=== PATIENT | male | born 1960 | race African-American/Black ===

== ENCOUNTER 2021-08-09 16:25 | Inpatient (IN) | payer OTHER ==
[2021-08-09 17:24] LABS: BASO % 1.1 % (0-2.0); EOS % 2.1 % (0-4.5); HEMATOCRIT 33.9 % (35.4-49); HEMOGLOBIN 10.9 GM/dL (11.7-16.9); LYMPH % 14.4 % (8-40); MCH 28.5 pg (25.7-33.7); MCHC 32.1 g/dl (32.0-35.9); MEAN CELL VOLUME 88.7 fl (80-96); MEAN PLT VOLUME 9.8 fl (7.5-11.1); MONO % 6.1 % (3.8-10.2); NEUT % 76.3 % (42.8-82.8); PLATELET COUNT 190 10^3/uL (134-434); RBC 3.82 M/mm3 (4.00-5.60); RDW 16.6 % (11.9-15.9); WHITE BLOOD COUNT 5.2 K/mm3 (4.0-10.0)
[2021-08-09 17:47] LABS: BLOOD UREA NITROGEN 38.6 mg/dL (7-18); CALCIUM 8.1 mg/dL (8.5-10.1)
[2021-08-09 17:48] LABS: ALBUMIN 3.2 g/dl (3.4-5.0)
[2021-08-09 17:51] LABS: CREATININE 2.6 mg/dL (0.55-1.3)
[2021-08-09 17:52] LABS: BILIRUBIN,TOTAL 0.6 mg/dL (0.2-1); TOT PROT 6.4 g/dl (6.4-8.2)
[2021-08-09 17:55] LABS: N-TERMINAL BNP 8116.6 pg/ml (5-125)
[2021-08-09] MEDS ORDERED: FUROSEMIDE 40 MG/4 ML INJECTABLE VIAL IVPUSH ONE (18:44)
[2021-08-09] MEDS ORDERED: FUROSEMIDE 40 MG/4 ML INJECTABLE VIAL ONE (19:38)
[2021-08-09 19:53] LABS: ACTIVATED PTT 33.1 SECONDS (25.2-36.5); INR 1.25 (0.83-1.09); PROTHROMBIN TIME (PATIENT) 14.4 SEC (9.7-13.0)
[2021-08-09 20:01] LABS: VENOUS BASE EXCESS -1.6 mmol/L (-2-2); VENOUS O2 SATURATION 90.3 % (70-80); VENOUS PCO2 39.9 mmHg (38-52); VENOUS PH 7.384 (7.310-7.410)
[2021-08-09] MEDS ORDERED: PNEUMOC 13-VAL CONJ-DIP CRM/PF 0.5 ML DISP.SYRIN IM ONE (23:56)
[2021-08-10 07:44] LABS: BASO % 0.8 % (0-2.0); HEMOGLOBIN 10.1 GM/dL (11.7-16.9); LYMPH % 18.7 % (8-40); MCHC 32.7 g/dl (32.0-35.9); MEAN CELL VOLUME 88.8 fl (80-96); MEAN PLT VOLUME 9.6 fl (7.5-11.1); MONO % 10.9 % (3.8-10.2); NEUT % 66.6 % (42.8-82.8); PLATELET COUNT 157 10^3/uL (134-434); RBC 3.49 M/mm3 (4.00-5.60); RDW 16.8 % (11.9-15.9); WHITE BLOOD COUNT 5.5 K/mm3 (4.0-10.0)
[2021-08-10 08:02] LABS: ALBUMIN 3.1 g/dl (3.4-5.0); BLOOD UREA NITROGEN 39.8 mg/dL (7-18); CALCIUM 8.3 mg/dL (8.5-10.1)
[2021-08-10 08:05] LABS: CREATININE 2.3 mg/dL (0.55-1.3)
[2021-08-10 08:07] LABS: BILIRUBIN,TOTAL 0.8 mg/dL (0.2-1); TOT PROT 5.8 g/dl (6.4-8.2)
[2021-08-10] MEDS ORDERED: PNEUMOCOCCAL 23 VACCINE 0.5 ML VIAL IM ONE (10:00)
[2021-08-10] MEDS: PANTOPRAZOLE 40 MG TABLET PO SCH (10:29)
[2021-08-10] MEDS: RIVAROXABAN 10 MG TABLET PO SCH (10:29)
[2021-08-10] MEDS: FUROSEMIDE 40 MG/4 ML INJECTABLE VIAL IVPUSH SCH (10:29)
[2021-08-10] MEDS: CLOPIDOGREL BISULFATE 75 MG TABLET (FP) PO SCH (10:29)
[2021-08-10 14:30] LABS: EPI CELLS 1 /uL (0-25.1); HYALINE CASTS 0 /uL (0-3.1); URINE APPEARANCE CLEAR; URINE BACTERIA 1 /uL (0-1359); URINE BILIRUBIN NEGATIVE (NEGATIVE); URINE COLOR YELLOW; URINE GLUCOSE (UA) NEGATIVE (NEGATIVE); URINE KETONE NEGATIVE (NEGATIVE); URINE LEUK ESTERASE NEGATIVE (NEGATIVE); URINE NITRITE NEGATIVE (NEGATIVE); URINE PROTEIN NEGATIVE (NEGATIVE); URINE RBC 1 /uL (0-23.9); URINE UROBILINOGEN 0.2 mg/dL (0.2-1.0); URINE WBC 1 /uL (0-25.8)
[2021-08-10] MEDS: ATORVASTATIN CA 80 MG TABLET (FP) PO SCH (21:33)
[2021-08-11 08:22] LABS: CALCIUM 8.4 mg/dL (8.5-10.1)
[2021-08-11 08:23] LABS: ALBUMIN 3.3 g/dl (3.4-5.0); BLOOD UREA NITROGEN 39.4 mg/dL (7-18)
[2021-08-11 08:26] LABS: CREATININE 2.2 mg/dL (0.55-1.3)
[2021-08-11 08:28] LABS: BILIRUBIN,TOTAL 0.8 mg/dL (0.2-1); TOT PROT 6.2 g/dl (6.4-8.2)
[2021-08-11] MEDS: FUROSEMIDE 40 MG/4 ML INJECTABLE VIAL IVPUSH SCH (09:44)
[2021-08-11] MEDS: RIVAROXABAN 10 MG TABLET PO SCH (09:44)
[2021-08-11] MEDS: CLOPIDOGREL BISULFATE 75 MG TABLET (FP) PO SCH (09:44)
[2021-08-11] MEDS: PANTOPRAZOLE 40 MG TABLET PO SCH (09:44)
[2021-08-11] MEDS: ATORVASTATIN CA 80 MG TABLET (FP) PO SCH (21:48)
[2021-08-12] MEDS: PANTOPRAZOLE 40 MG TABLET PO SCH (09:34)
[2021-08-12] MEDS: CLOPIDOGREL BISULFATE 75 MG TABLET (FP) PO SCH (09:34)
[2021-08-12] MEDS: RIVAROXABAN 10 MG TABLET PO SCH (09:34)
[2021-08-12] MEDS: FUROSEMIDE 40 MG/4 ML INJECTABLE VIAL IVPUSH SCH (09:34)
[2021-08-12 16:14] LABS: BASO % 0.8 % (0-2.0); HEMATOCRIT 34.4 % (35.4-49); HEMOGLOBIN 11.3 GM/dL (11.7-16.9); LYMPH % 17.3 % (8-40); MCH 29.1 pg (25.7-33.7); MCHC 32.7 g/dl (32.0-35.9); MEAN CELL VOLUME 88.9 fl (80-96); MEAN PLT VOLUME 9.6 fl (7.5-11.1); MONO % 7.7 % (3.8-10.2); NEUT % 70.2 % (42.8-82.8); PLATELET COUNT 179 10^3/uL (134-434); RBC 3.87 M/mm3 (4.00-5.60); RDW 16.3 % (11.9-15.9); WHITE BLOOD COUNT 5.2 K/mm3 (4.0-10.0)
[2021-08-12 16:37] LABS: CALCIUM 8.2 mg/dL (8.5-10.1)
[2021-08-12 16:38] LABS: ALBUMIN 3.1 g/dl (3.4-5.0); BLOOD UREA NITROGEN 36.8 mg/dL (7-18)
[2021-08-12 16:42] LABS: BILIRUBIN,TOTAL 0.6 mg/dL (0.2-1); TOT PROT 6.1 g/dl (6.4-8.2)
[2021-08-12] MEDS: ASPIRIN 81 MG CHEWABLE TABLETS PO SCH (16:49)
[2021-08-12] MEDS: EMPAGLIFLOZIN 10 MG PO SCH (17:50)
[2021-08-12] MEDS: ATORVASTATIN CA 80 MG TABLET (FP) PO SCH (21:02)
[2021-08-13 07:32] LABS: BASO % 0.8 % (0-2.0); EOS % 4.4 % (0-4.5); HEMATOCRIT 32.7 % (35.4-49); HEMOGLOBIN 10.8 GM/dL (11.7-16.9); LYMPH % 17.1 % (8-40); MCH 29.3 pg (25.7-33.7); MCHC 33.1 g/dl (32.0-35.9); MEAN CELL VOLUME 88.7 fl (80-96); MEAN PLT VOLUME 9.8 fl (7.5-11.1); MONO % 7.8 % (3.8-10.2); NEUT % 69.9 % (42.8-82.8); PLATELET COUNT 162 10^3/uL (134-434); RBC 3.69 M/mm3 (4.00-5.60); RDW 16.9 % (11.9-15.9); WHITE BLOOD COUNT 4.4 K/mm3 (4.0-10.0)
[2021-08-13 07:42] LABS: CALCIUM 8.2 mg/dL (8.5-10.1)
[2021-08-13 07:43] LABS: ALBUMIN 2.9 g/dl (3.4-5.0)
[2021-08-13 07:46] LABS: CREATININE 1.9 mg/dL (0.55-1.3)
[2021-08-13 07:47] LABS: BILIRUBIN,TOTAL 0.8 mg/dL (0.2-1)
[2021-08-13] MEDS: EMPAGLIFLOZIN 10 MG PO SCH (09:12)
[2021-08-13] MEDS: RIVAROXABAN 10 MG TABLET PO SCH (09:13)
[2021-08-13] MEDS: PANTOPRAZOLE 40 MG TABLET PO SCH (09:13)
[2021-08-13] MEDS: CLOPIDOGREL BISULFATE 75 MG TABLET (FP) PO SCH (09:13)
[2021-08-13] MEDS: FUROSEMIDE 40 MG/4 ML INJECTABLE VIAL IVPUSH SCH (09:13)
[2021-08-13] MEDS: ASPIRIN 81 MG CHEWABLE TABLETS PO SCH (09:13)
[2021-08-13] MEDS: ATORVASTATIN CA 80 MG TABLET (FP) PO SCH (21:12)
[2021-08-14] MEDS: EMPAGLIFLOZIN 10 MG PO SCH (10:08)
[2021-08-14] MEDS: ASPIRIN 81 MG CHEWABLE TABLETS PO SCH (10:08)
[2021-08-14] MEDS: CLOPIDOGREL BISULFATE 75 MG TABLET (FP) PO SCH (10:08)
[2021-08-14] MEDS: PANTOPRAZOLE 40 MG TABLET PO SCH (10:08)
[2021-08-14] MEDS: FUROSEMIDE 40 MG/4 ML INJECTABLE VIAL IVPUSH SCH (10:08)
[2021-08-14] MEDS: RIVAROXABAN 10 MG TABLET PO SCH (10:08)
[2021-08-14] MEDS ORDERED: SACUBITRIL/VALSARTAN 24 MG-26 MG TABLET PO SCH (12:00)
[2021-08-14] MEDS: SACUBITRIL/VALSARTAN 24 MG-26 MG TABLET PO SCH ×2 (13:07→21:58)
[2021-08-14] MEDS: ATORVASTATIN CA 80 MG TABLET (FP) PO SCH (21:58)
[2021-08-15 08:09] LABS: ALBUMIN 2.8 g/dl (3.4-5.0)
[2021-08-15 08:12] LABS: CREATININE 1.9 mg/dL (0.55-1.3)
[2021-08-15 08:14] LABS: BILIRUBIN,TOTAL 1.2 mg/dL (0.2-1); TOT PROT 5.8 g/dl (6.4-8.2)
[2021-08-15] MEDS: CLOPIDOGREL BISULFATE 75 MG TABLET (FP) PO SCH (09:36)
[2021-08-15] MEDS: FUROSEMIDE 40 MG/4 ML INJECTABLE VIAL IVPUSH SCH (09:36)
[2021-08-15] MEDS: SACUBITRIL/VALSARTAN 24 MG-26 MG TABLET PO SCH ×2 (09:39→21:19)
[2021-08-15] MEDS: ASPIRIN 81 MG CHEWABLE TABLETS PO SCH (09:39)
[2021-08-15] MEDS: PANTOPRAZOLE 40 MG TABLET PO SCH (09:39)
[2021-08-15] MEDS: EMPAGLIFLOZIN 10 MG PO SCH (09:40)
[2021-08-15] MEDS: RIVAROXABAN 10 MG TABLET PO SCH (12:02)
[2021-08-15] MEDS ORDERED: POTASSIUM CHLORIDE TABS 20 MEQ TABLET.ER (FP) PO ONE (15:42)
[2021-08-15] MEDS: ATORVASTATIN CA 80 MG TABLET (FP) PO SCH (21:19)
[2021-08-16 07:13] LABS: CALCIUM 8.1 mg/dL (8.5-10.1)
[2021-08-16 07:14] LABS: ALBUMIN 2.7 g/dl (3.4-5.0); BLOOD UREA NITROGEN 32.5 mg/dL (7-18)
[2021-08-16 07:18] LABS: BILIRUBIN,TOTAL 0.9 mg/dL (0.2-1); CREATININE 2.3 mg/dL (0.55-1.3); TOT PROT 5.8 g/dl (6.4-8.2)
[2021-08-16] MEDS: PANTOPRAZOLE 40 MG TABLET PO SCH (09:28)
[2021-08-16] MEDS: RIVAROXABAN 10 MG TABLET PO SCH (09:28)
[2021-08-16] MEDS: SACUBITRIL/VALSARTAN 24 MG-26 MG TABLET PO SCH ×2 (09:28→21:40)
[2021-08-16] MEDS: ASPIRIN 81 MG CHEWABLE TABLETS PO SCH (09:28)
[2021-08-16] MEDS: CLOPIDOGREL BISULFATE 75 MG TABLET (FP) PO SCH (09:28)
[2021-08-16] MEDS: FUROSEMIDE 40 MG TABLET (FP) PO SCH (09:28)
[2021-08-16] MEDS: EMPAGLIFLOZIN 10 MG PO SCH (09:40)
[2021-08-16] MEDS: RIVAROXABAN 20 MG TABLET PO SCH (18:00)
[2021-08-16] MEDS: ATORVASTATIN CA 80 MG TABLET (FP) PO SCH (21:40)
[2021-08-17] MEDS: FUROSEMIDE 40 MG TABLET (FP) PO SCH (09:09)
[2021-08-17] MEDS: EMPAGLIFLOZIN 10 MG PO SCH (09:09)
[2021-08-17] MEDS: SACUBITRIL/VALSARTAN 24 MG-26 MG TABLET PO SCH ×2 (09:09→21:13)
[2021-08-17] MEDS: CLOPIDOGREL BISULFATE 75 MG TABLET (FP) PO SCH (09:09)
[2021-08-17] MEDS: PANTOPRAZOLE 40 MG TABLET PO SCH (09:09)
[2021-08-17 14:21] VITALS: BMI 27.3
[2021-08-17] MEDS: RIVAROXABAN 20 MG TABLET PO SCH (17:17)
[2021-08-17] MEDS: ATORVASTATIN CA 80 MG TABLET (FP) PO SCH (21:13)
[2021-08-18 08:51] LABS: BASO % 1.1 % (0-2.0); EOS % 3.6 % (0-4.5); HEMOGLOBIN 11.5 GM/dL (11.7-16.9); LYMPH % 21.8 % (8-40); MCH 28.4 pg (25.7-33.7); MEAN CELL VOLUME 88.7 fl (80-96); MEAN PLT VOLUME 10.5 fl (7.5-11.1); MONO % 9.3 % (3.8-10.2); NEUT % 64.2 % (42.8-82.8); PLATELET COUNT 190 10^3/uL (134-434); RBC 4.06 M/mm3 (4.00-5.60); RDW 16.4 % (11.9-15.9); WHITE BLOOD COUNT 5.4 K/mm3 (4.0-10.0)
[2021-08-18] MEDS: SACUBITRIL/VALSARTAN 24 MG-26 MG TABLET PO SCH ×2 (09:16→21:50)
[2021-08-18] MEDS: FUROSEMIDE 40 MG TABLET (FP) PO SCH (09:17)
[2021-08-18] MEDS: PANTOPRAZOLE 40 MG TABLET PO SCH (09:17)
[2021-08-18] MEDS: CLOPIDOGREL BISULFATE 75 MG TABLET (FP) PO SCH (09:17)
[2021-08-18 09:33] LABS: ALBUMIN 2.8 g/dl (3.4-5.0); CALCIUM 7.9 mg/dL (8.5-10.1)
[2021-08-18 09:34] LABS: BLOOD UREA NITROGEN 31.5 mg/dL (7-18)
[2021-08-18 09:36] LABS: CREATININE 2.1 mg/dL (0.55-1.3)
[2021-08-18 09:37] LABS: BILIRUBIN,TOTAL 0.6 mg/dL (0.2-1); TOT PROT 5.8 g/dl (6.4-8.2)
[2021-08-18] MEDS: EMPAGLIFLOZIN 10 MG PO SCH (10:15)
[2021-08-18] MEDS ORDERED: PNEUMOCOCCAL 23 VACCINE 0.5 ML VIAL IM ONE (14:00)
[2021-08-18] MEDS: RIVAROXABAN 20 MG TABLET PO SCH (17:19)
[2021-08-18] MEDS: ATORVASTATIN CA 80 MG TABLET (FP) PO SCH (21:50)
[2021-08-19] MEDS: CLOPIDOGREL BISULFATE 75 MG TABLET (FP) PO SCH (09:44)
[2021-08-19] MEDS: PANTOPRAZOLE 40 MG TABLET PO SCH (09:44)
[2021-08-19] MEDS: FUROSEMIDE 40 MG TABLET (FP) PO SCH (09:44)
[2021-08-19] MEDS: SACUBITRIL/VALSARTAN 24 MG-26 MG TABLET PO SCH ×2 (09:45→21:01)
[2021-08-19] MEDS: EMPAGLIFLOZIN 10 MG PO SCH (09:46)
[2021-08-19] MEDS: RIVAROXABAN 20 MG TABLET PO SCH (17:00)
[2021-08-19] MEDS: ATORVASTATIN CA 80 MG TABLET (FP) PO SCH (21:01)
[2021-08-20] MEDS: FUROSEMIDE 40 MG TABLET (FP) PO SCH (09:11)
[2021-08-20] MEDS: CLOPIDOGREL BISULFATE 75 MG TABLET (FP) PO SCH (09:11)
[2021-08-20] MEDS: EMPAGLIFLOZIN 10 MG PO SCH (09:11)
[2021-08-20] MEDS: PANTOPRAZOLE 40 MG TABLET PO SCH (09:11)
[2021-08-20] MEDS: SACUBITRIL/VALSARTAN 24 MG-26 MG TABLET PO SCH ×2 (09:11→21:42)
[2021-08-20] MEDS: RIVAROXABAN 20 MG TABLET PO SCH (18:00)
[2021-08-20] MEDS: ATORVASTATIN CA 80 MG TABLET (FP) PO SCH (21:42)
[2021-08-21 09:02] LABS: BLOOD UREA NITROGEN 34.4 mg/dL (7-18); CALCIUM 8.1 mg/dL (8.5-10.1)
[2021-08-21 09:03] LABS: ALBUMIN 2.9 g/dl (3.4-5.0)
[2021-08-21 09:05] LABS: CREATININE 2.3 mg/dL (0.55-1.3)
[2021-08-21 09:07] LABS: BILIRUBIN,TOTAL 0.9 mg/dL (0.2-1); TOT PROT 6.3 g/dl (6.4-8.2)
[2021-08-21] MEDS: SACUBITRIL/VALSARTAN 24 MG-26 MG TABLET PO SCH ×2 (10:59→22:40)
[2021-08-21] MEDS: PANTOPRAZOLE 40 MG TABLET PO SCH (10:59)
[2021-08-21] MEDS: CLOPIDOGREL BISULFATE 75 MG TABLET (FP) PO SCH (10:59)
[2021-08-21] MEDS: EMPAGLIFLOZIN 10 MG PO SCH (10:59)
[2021-08-21] MEDS: FUROSEMIDE 40 MG TABLET (FP) PO SCH (10:59)
[2021-08-21] MEDS: RIVAROXABAN 20 MG TABLET PO SCH (19:20)
[2021-08-21] MEDS: ATORVASTATIN CA 80 MG TABLET (FP) PO SCH (22:40)
[2021-08-22 09:32] VITALS: BP 96/73; PULSE 86; TEMP 97.5
[2021-08-22] MEDS: SACUBITRIL/VALSARTAN 24 MG-26 MG TABLET PO SCH (09:33)
[2021-08-22] MEDS: FUROSEMIDE 40 MG TABLET (FP) PO SCH (09:34)
[2021-08-22] MEDS: EMPAGLIFLOZIN 10 MG PO SCH (09:34)
[2021-08-22] MEDS: PANTOPRAZOLE 40 MG TABLET PO SCH (09:34)
[2021-08-22] MEDS: CLOPIDOGREL BISULFATE 75 MG TABLET (FP) PO SCH (09:34)
== END 2021-08-22 12:30 | disposition home or self-care (01) | DRG 194 ==
LOC: JER 16:25 → JERBED 18:39 → J4W 22:45
PROVIDERS: ADMIT Internal Medicine; ATTEND Internal Medicine
DX: I13.0 Hypertensive heart and chronic kidney disease with heart failure and stage 1 through stage 4 chronic kidney disease, or unspecified chronic kidney disease (principal); K21.9 Gastro-esophageal reflux disease without esophagitis; I48.0 Paroxysmal atrial fibrillation; I25.2 Old myocardial infarction; N17.9 Acute kidney failure, unspecified; I25.10 Atherosclerotic heart disease of native coronary artery without angina pectoris; E78.5 Hyperlipidemia, unspecified; K76.0 Fatty (change of) liver, not elsewhere classified; R31.29 Other microscopic hematuria; I50.23 Acute on chronic systolic (congestive) heart failure; N18.9 Chronic kidney disease, unspecified; E87.6 Hypokalemia; Z98.61 Coronary angioplasty status; D64.9 Anemia, unspecified; I47.2 Ventricular tachycardia
CPT/HCPCS: 36415; 71045-TC-FY; 76775-TC; 80053; 80061; 81003; 82272; 82570; 82803; 83036; 83880; 84156; 84443; 84484; 85025; 85610; 85730; 90732; 93005; 93010; 93306-TC; 94660; 99291; C9803-CS; G0009; U0003; U0005

== ENCOUNTER 2021-10-09 14:30 | Inpatient (IN) | payer OTHER ==
[2021-10-09] MEDS ORDERED: FUROSEMIDE 40 MG/4 ML INJECTABLE VIAL IVPUSH ONE (16:55)
[2021-10-09] MEDS ORDERED: FUROSEMIDE 40 MG/4 ML INJECTABLE VIAL ONE (17:14)
[2021-10-09 17:51] LABS: EOS % 0.9 % (0-4.5); HEMATOCRIT 38.3 % (35.4-49); HEMOGLOBIN 11.9 GM/dL (11.7-16.9); LYMPH % 18.3 % (8-40); MCH 26.1 pg (25.7-33.7); MCHC 30.9 g/dl (32.0-35.9); MEAN CELL VOLUME 84.5 fl (80-96); MEAN PLT VOLUME 10.5 fl (7.5-11.1); MONO % 8.2 % (3.8-10.2); NEUT % 71.6 % (42.8-82.8); PLATELET COUNT 224 10^3/uL (134-434); RBC 4.54 M/mm3 (4.00-5.60); WHITE BLOOD COUNT 5.1 K/mm3 (4.0-10.0)
[2021-10-09 17:58] LABS: INR 1.4 (0.83-1.09); PROTHROMBIN TIME (PATIENT) 16.1 SEC (9.7-13.0)
[2021-10-09 18:00] LABS: ACTIVATED PTT 40.1 SECONDS (25.2-36.5)
[2021-10-09 18:13] LABS: CALCIUM 8.8 mg/dL (8.5-10.1)
[2021-10-09 18:14] LABS: ALBUMIN 3.5 g/dl (3.4-5.0); BLOOD UREA NITROGEN 55.8 mg/dL (7-18); MAGNESIUM 2.6 mg/dL (1.8-2.4)
[2021-10-09 18:17] LABS: CREATININE 2.6 mg/dL (0.55-1.3)
[2021-10-09 18:19] LABS: BILIRUBIN,TOTAL 1.4 mg/dL (0.2-1); TOT PROT 6.6 g/dl (6.4-8.2)
[2021-10-09 18:21] LABS: N-TERMINAL BNP 11402.8 pg/ml (5-125)
[2021-10-09 19:05] LABS: EPI CELLS 7 /uL (0-25.1); HYALINE CASTS 2 /uL (0-3.1); URINE APPEARANCE CLEAR; URINE BACTERIA 2 /uL (0-1359); URINE BILIRUBIN NEGATIVE (NEGATIVE); URINE COLOR YELLOW; URINE GLUCOSE (UA) NEGATIVE (NEGATIVE); URINE KETONE NEGATIVE (NEGATIVE); URINE LEUK ESTERASE NEGATIVE (NEGATIVE); URINE NITRITE NEGATIVE (NEGATIVE); URINE PROTEIN 1+ (NEGATIVE); URINE RBC 14 /uL (0-23.9); URINE UROBILINOGEN 0.2 mg/dL (0.2-1.0); URINE WBC 4 /uL (0-25.8)
[2021-10-10 08:09] VITALS: BMI 30.3
[2021-10-10 08:15] LABS: BASO % 1.1 % (0-2.0); EOS % 1.4 % (0-4.5); HEMATOCRIT 36.7 % (35.4-49); HEMOGLOBIN 11.6 GM/dL (11.7-16.9); LYMPH % 19.4 % (8-40); MCH 26.5 pg (25.7-33.7); MCHC 31.5 g/dl (32.0-35.9); MEAN CELL VOLUME 84.1 fl (80-96); MEAN PLT VOLUME 10.5 fl (7.5-11.1); MONO % 11.7 % (3.8-10.2); NEUT % 66.4 % (42.8-82.8); PLATELET COUNT 206 10^3/uL (134-434); RBC 4.37 M/mm3 (4.00-5.60); RDW 16.7 % (11.9-15.9); WHITE BLOOD COUNT 5.3 K/mm3 (4.0-10.0)
[2021-10-10 08:36] LABS: CALCIUM 8.4 mg/dL (8.5-10.1)
[2021-10-10 08:37] LABS: ALBUMIN 3.1 g/dl (3.4-5.0)
[2021-10-10 08:40] LABS: CREATININE 2.8 mg/dL (0.55-1.3)
[2021-10-10 08:41] LABS: BILIRUBIN,TOTAL 1.4 mg/dL (0.2-1)
[2021-10-10] MEDS: FUROSEMIDE 40 MG/4 ML INJECTABLE VIAL IVPUSH SCH (10:58)
[2021-10-10] MEDS: SACUBITRIL/VALSARTAN 24 MG-26 MG TABLET PO SCH ×2 (10:59→21:52)
[2021-10-10] MEDS: CLOPIDOGREL BISULFATE 75 MG TABLET (FP) PO SCH (10:59)
[2021-10-10] MEDS: RIVAROXABAN 10 MG TABLET PO SCH (18:29)
[2021-10-10] MEDS: ATORVASTATIN CA 80 MG TABLET (FP) PO SCH (21:53)
[2021-10-11 08:07] LABS: BASO % 1.1 % (0-2.0); EOS % 2.6 % (0-4.5); HEMATOCRIT 37.7 % (35.4-49); HEMOGLOBIN 11.7 GM/dL (11.7-16.9); LYMPH % 15.8 % (8-40); MCH 26.2 pg (25.7-33.7); MCHC 31.1 g/dl (32.0-35.9); MEAN CELL VOLUME 84.1 fl (80-96); MEAN PLT VOLUME 10.6 fl (7.5-11.1); MONO % 11.2 % (3.8-10.2); NEUT % 69.3 % (42.8-82.8); PLATELET COUNT 195 10^3/uL (134-434); RBC 4.48 M/mm3 (4.00-5.60); WHITE BLOOD COUNT 5.3 K/mm3 (4.0-10.0)
[2021-10-11 08:23] LABS: CALCIUM 8.2 mg/dL (8.5-10.1)
[2021-10-11 08:25] LABS: BLOOD UREA NITROGEN 57.5 mg/dL (7-18)
[2021-10-11 08:26] LABS: CREATININE 2.5 mg/dL (0.55-1.3)
[2021-10-11 08:29] LABS: BILIRUBIN,TOTAL 1.2 mg/dL (0.2-1); TOT PROT 5.7 g/dl (6.4-8.2)
[2021-10-11] MEDS: CLOPIDOGREL BISULFATE 75 MG TABLET (FP) PO SCH (09:18)
[2021-10-11] MEDS: SACUBITRIL/VALSARTAN 24 MG-26 MG TABLET PO SCH ×2 (09:18→21:29)
[2021-10-11] MEDS: FUROSEMIDE 40 MG/4 ML INJECTABLE VIAL IVPUSH SCH (09:18)
[2021-10-11] MEDS: RIVAROXABAN 10 MG TABLET PO SCH (17:10)
[2021-10-11] MEDS: ATORVASTATIN CA 80 MG TABLET (FP) PO SCH (21:29)
[2021-10-12] MEDS: CLOPIDOGREL BISULFATE 75 MG TABLET (FP) PO SCH (09:21)
[2021-10-12] MEDS: FUROSEMIDE 40 MG/4 ML INJECTABLE VIAL IVPUSH SCH (09:21)
[2021-10-12] MEDS: SACUBITRIL/VALSARTAN 24 MG-26 MG TABLET PO SCH ×2 (10:00→22:02)
[2021-10-12] MEDS: RIVAROXABAN 10 MG TABLET PO SCH (17:11)
[2021-10-12] MEDS: ATORVASTATIN CA 80 MG TABLET (FP) PO SCH (22:02)
[2021-10-13 07:07] LABS: BASO % 1.2 % (0-2.0); EOS % 2.1 % (0-4.5); HEMATOCRIT 35.3 % (35.4-49); HEMOGLOBIN 11.5 GM/dL (11.7-16.9); LYMPH % 16.2 % (8-40); MCHC 32.5 g/dl (32.0-35.9); MEAN CELL VOLUME 82.9 fl (80-96); MEAN PLT VOLUME 9.9 fl (7.5-11.1); MONO % 10.2 % (3.8-10.2); NEUT % 70.3 % (42.8-82.8); PLATELET COUNT 181 10^3/uL (134-434); RBC 4.25 M/mm3 (4.00-5.60); RDW 16.5 % (11.9-15.9); WHITE BLOOD COUNT 4.8 K/mm3 (4.0-10.0)
[2021-10-13 07:29] LABS: ALBUMIN 2.8 g/dl (3.4-5.0); CALCIUM 7.9 mg/dL (8.5-10.1)
[2021-10-13 07:31] LABS: BILIRUBIN,TOTAL 0.8 mg/dL (0.2-1); BLOOD UREA NITROGEN 45.4 mg/dL (7-18); TOT PROT 5.5 g/dl (6.4-8.2)
[2021-10-13] MEDS: CLOPIDOGREL BISULFATE 75 MG TABLET (FP) PO SCH (09:29)
[2021-10-13] MEDS: SACUBITRIL/VALSARTAN 24 MG-26 MG TABLET PO SCH ×2 (09:29→21:20)
[2021-10-13] MEDS: FUROSEMIDE 40 MG/4 ML INJECTABLE VIAL IVPUSH SCH (09:30)
[2021-10-13] MEDS: RIVAROXABAN 10 MG TABLET PO SCH (17:40)
[2021-10-13] MEDS: ATORVASTATIN CA 80 MG TABLET (FP) PO SCH (21:20)
[2021-10-14] MEDS: CLOPIDOGREL BISULFATE 75 MG TABLET (FP) PO SCH (10:19)
[2021-10-14] MEDS: SACUBITRIL/VALSARTAN 24 MG-26 MG TABLET PO SCH ×2 (10:19→21:31)
[2021-10-14] MEDS: FUROSEMIDE 40 MG/4 ML INJECTABLE VIAL IVPUSH SCH (10:19)
[2021-10-14] MEDS: RIVAROXABAN 10 MG TABLET PO SCH (17:09)
[2021-10-14] MEDS: ATORVASTATIN CA 80 MG TABLET (FP) PO SCH (21:31)
[2021-10-15 07:30] LABS: CALCIUM 8.2 mg/dL (8.5-10.1)
[2021-10-15 07:31] LABS: ALBUMIN 2.8 g/dl (3.4-5.0)
[2021-10-15 07:34] LABS: CREATININE 2.1 mg/dL (0.55-1.3)
[2021-10-15 07:36] LABS: BILIRUBIN,TOTAL 0.9 mg/dL (0.2-1); TOT PROT 5.8 g/dl (6.4-8.2)
[2021-10-15] MEDS: FUROSEMIDE 40 MG/4 ML INJECTABLE VIAL IVPUSH SCH (09:28)
[2021-10-15] MEDS: CLOPIDOGREL BISULFATE 75 MG TABLET (FP) PO SCH (09:28)
[2021-10-15] MEDS: SACUBITRIL/VALSARTAN 24 MG-26 MG TABLET PO SCH ×3 (09:33→21:05)
[2021-10-15] MEDS: RIVAROXABAN 10 MG TABLET PO SCH (17:47)
[2021-10-15] MEDS: ATORVASTATIN CA 80 MG TABLET (FP) PO SCH (21:05)
[2021-10-16] MEDS: SACUBITRIL/VALSARTAN 24 MG-26 MG TABLET PO SCH ×2 (09:57→21:10)
[2021-10-16] MEDS: CLOPIDOGREL BISULFATE 75 MG TABLET (FP) PO SCH (09:57)
[2021-10-16] MEDS: FUROSEMIDE 40 MG TABLET (FP) PO SCH (11:02)
[2021-10-16] MEDS: FUROSEMIDE 40 MG/4 ML INJECTABLE VIAL IVPUSH SCH (11:03)
[2021-10-16] MEDS: RIVAROXABAN 10 MG TABLET PO SCH (17:27)
[2021-10-16] MEDS: ATORVASTATIN CA 80 MG TABLET (FP) PO SCH (21:10)
[2021-10-17 08:22] LABS: HEMATOCRIT 34.4 % (35.4-49); HEMOGLOBIN 10.9 GM/dL (11.7-16.9); MCH 26.4 pg (25.7-33.7); MCHC 31.7 g/dl (32.0-35.9); MEAN CELL VOLUME 83.4 fl (80-96); MEAN PLT VOLUME 10.2 fl (7.5-11.1); MONO % 8.5 % (3.8-10.2); NEUT % 77.7 % (42.8-82.8); PLATELET COUNT 179 10^3/uL (134-434); RBC 4.12 M/mm3 (4.00-5.60); RDW 16.7 % (11.9-15.9); WHITE BLOOD COUNT 5.6 K/mm3 (4.0-10.0)
[2021-10-17 08:23] LABS: BASO % 0.9 % (0-2.0); EOS % 0.9 % (0-4.5)
[2021-10-17 08:43] LABS: ALBUMIN 2.9 g/dl (3.4-5.0); BLOOD UREA NITROGEN 51.2 mg/dL (7-18)
[2021-10-17 08:46] LABS: CREATININE 2.3 mg/dL (0.55-1.3)
[2021-10-17 08:47] LABS: TOT PROT 5.8 g/dl (6.4-8.2)
[2021-10-17 08:48] LABS: BILIRUBIN,TOTAL 0.7 mg/dL (0.2-1)
[2021-10-17] MEDS: FUROSEMIDE 40 MG TABLET (FP) PO SCH (09:29)
[2021-10-17] MEDS: SACUBITRIL/VALSARTAN 24 MG-26 MG TABLET PO SCH (09:29)
[2021-10-17] MEDS: CLOPIDOGREL BISULFATE 75 MG TABLET (FP) PO SCH (09:29)
[2021-10-17 15:03] VITALS: BP 100/77; PULSE 100; TEMP 97.9
[2021-10-17] MEDS: RIVAROXABAN 10 MG TABLET PO SCH (17:03)
== END 2021-10-17 19:13 | disposition home or self-care (01) | DRG 194 ==
LOC: JER 14:30 → JERBED 19:33 → J4W 10-10 03:18
PROVIDERS: ADMIT Internal Medicine; ATTEND Internal Medicine
DX: I13.0 Hypertensive heart and chronic kidney disease with heart failure and stage 1 through stage 4 chronic kidney disease, or unspecified chronic kidney disease (principal); I50.23 Acute on chronic systolic (congestive) heart failure; N17.9 Acute kidney failure, unspecified; E87.6 Hypokalemia; I42.0 Dilated cardiomyopathy; E78.5 Hyperlipidemia, unspecified; I25.119 Atherosclerotic heart disease of native coronary artery with unspecified angina pectoris; K21.9 Gastro-esophageal reflux disease without esophagitis; K76.0 Fatty (change of) liver, not elsewhere classified; R31.29 Other microscopic hematuria; Z98.61 Coronary angioplasty status; I47.1 Supraventricular tachycardia; D64.9 Anemia, unspecified; N18.2 Chronic kidney disease, stage 2 (mild); I48.0 Paroxysmal atrial fibrillation; I25.2 Old myocardial infarction; E78.00 Pure hypercholesterolemia, unspecified; R06.02 Shortness of breath; E66.9 Obesity, unspecified; Z68.30 Body mass index [BMI] 30.0-30.9, adult; E87.70 Fluid overload, unspecified
CPT/HCPCS: 36415; 71046-TC-FY; 76775-TC; 76856-TC; 80053; 81003; 83735; 83880; 84484; 85025; 85610; 85730; 87086; 93005; 93010; 93306-TC; 93971; 99285-25; C9803-CS; U0003; U0005

== ENCOUNTER 2021-12-17 14:25 | Inpatient (IN) | payer OTHER ==
[2021-12-17] MEDS ORDERED: SODIUM CHLORIDE 0.9% 500 ML INFUS.BAG IV ONE (16:19)
[2021-12-17 18:09] LABS: EOS % 0.9 % (0-4.5); HEMATOCRIT 37.9 % (35.4-49); HEMOGLOBIN 11.9 GM/dL (11.7-16.9); LYMPH % 11.7 % (8-40); MCH 23.6 pg (25.7-33.7); MCHC 31.5 g/dl (32.0-35.9); MEAN CELL VOLUME 75.1 fl (80-96); MEAN PLT VOLUME 9.2 fl (7.5-11.1); NEUT % 75.4 % (42.8-82.8); PLATELET COUNT 218 10^3/uL (134-434); RBC 5.05 M/mm3 (4.00-5.60); RDW 21.8 % (11.9-15.9); WHITE BLOOD COUNT 6.8 K/mm3 (4.0-10.0)
[2021-12-17 18:31] LABS: BLOOD UREA NITROGEN 66.5 mg/dL (7-18); CALCIUM 8.5 mg/dL (8.5-10.1)
[2021-12-17 18:33] LABS: ALBUMIN 2.9 g/dl (3.4-5.0)
[2021-12-17 18:35] LABS: CREATININE 3.1 mg/dL (0.55-1.3)
[2021-12-17 18:37] LABS: BILIRUBIN,TOTAL 2.8 mg/dL (0.2-1); TOT PROT 6.2 g/dl (6.4-8.2)
[2021-12-17 18:47] LABS: N-TERMINAL BNP 13375.3 pg/ml (5-125)
[2021-12-17 19:01] LABS: ANISOCYTOSIS 2+; MACROCYTOSIS 0; OVALOCYTE 1+; TARGET CELLS 1+
[2021-12-17 19:53] LABS: INR 1.63 (0.83-1.09); PROTHROMBIN TIME (PATIENT) 18.8 SEC (9.7-13.0)
[2021-12-17 19:55] LABS: ACTIVATED PTT 34.3 SECONDS (25.2-36.5)
[2021-12-18 08:22] LABS: CALCIUM 8.1 mg/dL (8.5-10.1)
[2021-12-18 08:23] LABS: ALBUMIN 2.7 g/dl (3.4-5.0); BLOOD UREA NITROGEN 61.7 mg/dL (7-18)
[2021-12-18 08:26] LABS: CREATININE 2.6 mg/dL (0.55-1.3)
[2021-12-18 08:27] LABS: BILIRUBIN,TOTAL 2.6 mg/dL (0.2-1); TOT PROT 5.8 g/dl (6.4-8.2)
[2021-12-18 09:09] LABS: BASO % 0.7 % (0-2.0); HEMATOCRIT 39.9 % (35.4-49); HEMOGLOBIN 12.3 GM/dL (11.7-16.9); LYMPH % 13.2 % (8-40); MCH 23.2 pg (25.7-33.7); MCHC 30.8 g/dl (32.0-35.9); MEAN CELL VOLUME 75.6 fl (80-96); MEAN PLT VOLUME 9.3 fl (7.5-11.1); MONO % 13.2 % (3.8-10.2); NEUT % 71.9 % (42.8-82.8); PLATELET COUNT 210 10^3/uL (134-434); RBC 5.28 M/mm3 (4.00-5.60); RDW 21.6 % (11.9-15.9); WHITE BLOOD COUNT 5.9 K/mm3 (4.0-10.0)
[2021-12-18] MEDS ORDERED: CLOPIDOGREL BISULFATE 75 MG TABLET (FP) ONE (10:08)
[2021-12-18] MEDS ORDERED: PANTOPRAZOLE 40 MG TABLET PO ONE (10:08)
[2021-12-18] MEDS: RIVAROXABAN 10 MG TABLET PO SCH (10:23)
[2021-12-18] MEDS: PANTOPRAZOLE 40 MG TABLET PO SCH (10:23)
[2021-12-18] MEDS: SACUBITRIL/VALSARTAN 24 MG-26 MG TABLET PO SCH (10:23)
[2021-12-18] MEDS: CLOPIDOGREL BISULFATE 75 MG TABLET (FP) PO SCH (10:23)
[2021-12-19] MEDS: SACUBITRIL/VALSARTAN 24 MG-26 MG TABLET PO SCH ×3 (02:06→21:22)
[2021-12-19] MEDS: ATORVASTATIN CA 80 MG TABLET (FP) PO SCH ×2 (02:07→21:22)
[2021-12-19] MEDS ORDERED: ATORVASTATIN CA 80 MG TABLET (FP) ONE (02:38)
[2021-12-19] MEDS: PANTOPRAZOLE 40 MG TABLET PO SCH (10:37)
[2021-12-19] MEDS: RIVAROXABAN 10 MG TABLET PO SCH (10:37)
[2021-12-19] MEDS: CLOPIDOGREL BISULFATE 75 MG TABLET (FP) PO SCH (10:37)
[2021-12-19 16:04] VITALS: BMI 32.3
[2021-12-19] MEDS ORDERED: metoPROLOL SUCCINATE 25 MG TAB.SR.24H (FP) PO SCH (16:15)
[2021-12-19] MEDS: metoPROLOL SUCCINATE 25 MG TAB.SR.24H (FP) PO SCH (17:02)
[2021-12-20] MEDS: SACUBITRIL/VALSARTAN 24 MG-26 MG TABLET PO SCH ×2 (09:05→22:01)
[2021-12-20] MEDS: CLOPIDOGREL BISULFATE 75 MG TABLET (FP) PO SCH (09:05)
[2021-12-20] MEDS: RIVAROXABAN 10 MG TABLET PO SCH (09:05)
[2021-12-20] MEDS: PANTOPRAZOLE 40 MG TABLET PO SCH (09:05)
[2021-12-20] MEDS: metoPROLOL SUCCINATE 25 MG TAB.SR.24H (FP) PO SCH (09:05)
[2021-12-20] MEDS: ATORVASTATIN CA 80 MG TABLET (FP) PO SCH (22:01)
[2021-12-21 07:22] LABS: BASO % 1.3 % (0-2.0); EOS % 1.8 % (0-4.5); HEMATOCRIT 36.6 % (35.4-49); HEMOGLOBIN 11.5 GM/dL (11.7-16.9); LYMPH % 18.3 % (8-40); MCH 23.4 pg (25.7-33.7); MCHC 31.5 g/dl (32.0-35.9); MEAN CELL VOLUME 74.2 fl (80-96); MEAN PLT VOLUME 9.5 fl (7.5-11.1); MONO % 11.2 % (3.8-10.2); NEUT % 67.4 % (42.8-82.8); PLATELET COUNT 202 10^3/uL (134-434); RBC 4.93 M/mm3 (4.00-5.60); RDW 21.6 % (11.9-15.9); WHITE BLOOD COUNT 5.1 K/mm3 (4.0-10.0)
[2021-12-21 07:37] LABS: ALBUMIN 2.7 g/dl (3.4-5.0); BLOOD UREA NITROGEN 47.1 mg/dL (7-18); CALCIUM 7.5 mg/dL (8.5-10.1)
[2021-12-21 07:40] LABS: CREATININE 2.1 mg/dL (0.55-1.3)
[2021-12-21 07:41] LABS: BILIRUBIN,TOTAL 1.6 mg/dL (0.2-1)
[2021-12-21 07:42] LABS: TOT PROT 5.9 g/dl (6.4-8.2)
[2021-12-21] MEDS: RIVAROXABAN 10 MG TABLET PO SCH (09:58)
[2021-12-21] MEDS: metoPROLOL SUCCINATE 25 MG TAB.SR.24H (FP) PO SCH (09:58)
[2021-12-21] MEDS: PANTOPRAZOLE 40 MG TABLET PO SCH (09:58)
[2021-12-21] MEDS: CLOPIDOGREL BISULFATE 75 MG TABLET (FP) PO SCH (09:58)
[2021-12-21] MEDS: SACUBITRIL/VALSARTAN 24 MG-26 MG TABLET PO SCH ×2 (09:58→21:11)
[2021-12-21 11:49] LABS: ANISOCYTOSIS 1+; PLATELET ESTIMATE NORMAL
[2021-12-21] MEDS: FUROSEMIDE 40 MG TABLET (FP) PO SCH (12:39)
[2021-12-21] MEDS: ATORVASTATIN CA 80 MG TABLET (FP) PO SCH (21:11)
[2021-12-22] MEDS ORDERED: RIVAROXABAN 10 MG TABLET PO SCH (05:21)
[2021-12-22 07:19] LABS: BASO % 1.3 % (0-2.0); EOS % 2.6 % (0-4.5); HEMATOCRIT 33.9 % (35.4-49); HEMOGLOBIN 10.5 GM/dL (11.7-16.9); LYMPH % 20.5 % (8-40); MCH 23.1 pg (25.7-33.7); MCHC 30.9 g/dl (32.0-35.9); MEAN CELL VOLUME 74.9 fl (80-96); MEAN PLT VOLUME 9.4 fl (7.5-11.1); MONO % 13.3 % (3.8-10.2); NEUT % 62.3 % (42.8-82.8); PLATELET COUNT 182 10^3/uL (134-434); RBC 4.53 M/mm3 (4.00-5.60); RDW 21.6 % (11.9-15.9)
[2021-12-22 07:41] LABS: ALBUMIN 2.5 g/dl (3.4-5.0); BLOOD UREA NITROGEN 45.4 mg/dL (7-18); CALCIUM 7.3 mg/dL (8.5-10.1); MAGNESIUM 2.1 mg/dL (1.8-2.4)
[2021-12-22 07:44] LABS: CREATININE 2.2 mg/dL (0.55-1.3); PHOSPHOROUS 2.6 mg/dL (2.5-4.9)
[2021-12-22 07:46] LABS: BILIRUBIN,TOTAL 1.2 mg/dL (0.2-1); TOT PROT 5.6 g/dl (6.4-8.2)
[2021-12-22] MEDS: FUROSEMIDE 40 MG TABLET (FP) PO SCH (09:26)
[2021-12-22] MEDS: metoPROLOL SUCCINATE 25 MG TAB.SR.24H (FP) PO SCH (09:26)
[2021-12-22] MEDS: CLOPIDOGREL BISULFATE 75 MG TABLET (FP) PO SCH (09:26)
[2021-12-22] MEDS: PANTOPRAZOLE 40 MG TABLET PO SCH (09:26)
[2021-12-22] MEDS: SACUBITRIL/VALSARTAN 24 MG-26 MG TABLET PO SCH ×2 (10:19→21:14)
[2021-12-22] MEDS: ATORVASTATIN CA 80 MG TABLET (FP) PO SCH (21:14)
[2021-12-23] MEDS: PANTOPRAZOLE 40 MG TABLET PO SCH (10:02)
[2021-12-23] MEDS: CLOPIDOGREL BISULFATE 75 MG TABLET (FP) PO SCH (10:02)
[2021-12-23] MEDS: FUROSEMIDE 40 MG TABLET (FP) PO SCH (10:04)
[2021-12-23] MEDS: metoPROLOL SUCCINATE 25 MG TAB.SR.24H (FP) PO SCH (10:04)
[2021-12-23] MEDS: SACUBITRIL/VALSARTAN 24 MG-26 MG TABLET PO SCH (10:04)
[2021-12-23 15:48] VITALS: BP 107/70; PULSE 112; RESP 20; TEMP 98.7
== END 2021-12-23 17:58 | disposition home or self-care (01) | DRG 194 ==
LOC: JER 14:25 → JERBED 16:41 → OBSVTOIN 12-18 01:53 → J4W 12-19 14:27
PROVIDERS: ADMIT Internal Medicine; ATTEND Internal Medicine
DX: I13.0 Hypertensive heart and chronic kidney disease with heart failure and stage 1 through stage 4 chronic kidney disease, or unspecified chronic kidney disease (principal); I50.43 Acute on chronic combined systolic (congestive) and diastolic (congestive) heart failure; I25.119 Atherosclerotic heart disease of native coronary artery with unspecified angina pectoris; I42.0 Dilated cardiomyopathy; E78.5 Hyperlipidemia, unspecified; N17.9 Acute kidney failure, unspecified; N18.9 Chronic kidney disease, unspecified; K21.9 Gastro-esophageal reflux disease without esophagitis; E87.6 Hypokalemia; K76.0 Fatty (change of) liver, not elsewhere classified; Z98.61 Coronary angioplasty status; I48.0 Paroxysmal atrial fibrillation; I47.2 Ventricular tachycardia; I95.9 Hypotension, unspecified; I25.5 Ischemic cardiomyopathy
CPT/HCPCS: 0241U-QW; 36415; 71046-TC-FY; 76775-TC; 80048; 80053; 83735; 83880; 84100; 84484; 85025; 85610; 85730; 93005; 93010; 99291; G0378

== ENCOUNTER 2022-02-09 12:42 | Inpatient (IN) | payer OTHER ==
[2022-02-09 16:31] LABS: VENOUS BASE EXCESS -1.8 mmol/L (-2-2); VENOUS O2 SATURATION 32.6 % (70-80); VENOUS PCO2 51.7 mmHg (38-52); VENOUS PH 7.305 (7.310-7.410)
[2022-02-09 16:43] LABS: BASO % 0.1 % (0-2.0); HEMATOCRIT 40.3 % (35.4-49); LYMPH % 7.1 % (8-40); MCH 24.5 pg (25.7-33.7); MCHC 29.8 g/dl (32.0-35.9); MEAN CELL VOLUME 82.1 fl (80-96); MEAN PLT VOLUME 9.1 fl (7.5-11.1); MONO % 8.1 % (3.8-10.2); NEUT % 84.7 % (42.8-82.8); PLATELET COUNT 270 10^3/uL (134-434); RDW 27.4 % (11.9-15.9); WHITE BLOOD COUNT 7.9 K/mm3 (4.0-10.0)
[2022-02-09 16:55] LABS: PROTHROMBIN TIME (PATIENT) 65.3 SEC (9.7-13.0)
[2022-02-09 16:58] LABS: ACTIVATED PTT 42.5 SECONDS (25.2-36.5)
[2022-02-09 17:06] LABS: ALBUMIN 2.8 g/dl (3.4-5.0); CALCIUM 9.3 mg/dL (8.5-10.1)
[2022-02-09 17:11] LABS: TOT PROT 6.3 g/dl (6.4-8.2)
[2022-02-09] MEDS ORDERED: FUROSEMIDE 40 MG/4 ML INJECTABLE VIAL IVPUSH ONE (17:20)
[2022-02-09 17:22] LABS: INR 5.58 (0.83-1.09)
[2022-02-09] MEDS ORDERED: PHYTONADIONE 5 MG TABLET PO ONE (17:48)
[2022-02-09 18:41] LABS: ACTIVATED PTT 44.6 SECONDS (25.2-36.5)
[2022-02-09] MEDS ORDERED: FUROSEMIDE 40 MG/4 ML INJECTABLE VIAL ONE (19:23)
[2022-02-09] MEDS ORDERED: PHYTONADIONE 5 MG TABLET ONE (19:26)
[2022-02-09 19:30] LABS: INR 5.89 (0.83-1.09)
[2022-02-09 20:06] LABS: ANISOCYTOSIS 2+; MACROCYTOSIS 0; OVALOCYTE 2+; TARGET CELLS 2+; TEAR DROP CELLS 1+
[2022-02-10 07:08] LABS: BASO % 0.2 % (0-2.0); HEMATOCRIT 42.1 % (35.4-49); HEMOGLOBIN 12.8 GM/dL (11.7-16.9); LYMPH % 5.9 % (8-40); MCH 24.9 pg (25.7-33.7); MCHC 30.5 g/dl (32.0-35.9); MEAN CELL VOLUME 81.9 fl (80-96); MEAN PLT VOLUME 8.8 fl (7.5-11.1); MONO % 7.7 % (3.8-10.2); NEUT % 86.2 % (42.8-82.8); PLATELET COUNT 255 10^3/uL (134-434); RBC 5.14 M/mm3 (4.00-5.60); RDW 27.6 % (11.9-15.9)
[2022-02-10 07:22] LABS: CALCIUM 8.8 mg/dL (8.5-10.1)
[2022-02-10 07:23] LABS: ALBUMIN 2.4 g/dl (3.4-5.0); BLOOD UREA NITROGEN 76.5 mg/dL (7-18)
[2022-02-10 07:27] LABS: CREATININE 2.9 mg/dL (0.55-1.3); TOT PROT 5.5 g/dl (6.4-8.2)
[2022-02-10 07:28] LABS: BILIRUBIN,TOTAL 4.1 mg/dL (0.2-1)
[2022-02-10 07:47] LABS: ACTIVATED PTT 48.1 SECONDS (25.2-36.5); PROTHROMBIN TIME (PATIENT) 56.1 SEC (9.7-13.0)
[2022-02-10 08:02] LABS: INR 4.8 (0.83-1.09)
[2022-02-10] MEDS ORDERED: FUROSEMIDE 40 MG/4 ML INJECTABLE VIAL IVPUSH SCH (10:00)
[2022-02-10] MEDS ORDERED: CLOPIDOGREL BISULFATE 75 MG TABLET (FP) ONE (11:42)
[2022-02-10] MEDS ORDERED: FUROSEMIDE 40 MG/4 ML INJECTABLE VIAL ONE (11:42)
[2022-02-10] MEDS: SACUBITRIL/VALSARTAN 24 MG-26 MG TABLET PO SCH ×2 (12:22→22:13)
[2022-02-10] MEDS: CLOPIDOGREL BISULFATE 75 MG TABLET (FP) PO SCH (12:22)
[2022-02-10] MEDS: MIDODRINE HCL 2.5 MG TABLET PO SCH (16:33)
[2022-02-10] MEDS: RIVAROXABAN 10 MG TABLET PO SCH (19:21)
[2022-02-10] MEDS: ATORVASTATIN CA 80 MG TABLET (FP) PO SCH (22:13)
[2022-02-11] MEDS ORDERED: FUROSEMIDE 40 MG/4 ML INJECTABLE VIAL IVPUSH SCH (06:00)
[2022-02-11 08:04] LABS: BASO % 0.1 % (0-2.0); EOS % 0.1 % (0-4.5); HEMATOCRIT 35.3 % (35.4-49); HEMOGLOBIN 10.8 GM/dL (11.7-16.9); LYMPH % 5.4 % (8-40); MCH 25.1 pg (25.7-33.7); MCHC 30.5 g/dl (32.0-35.9); MEAN CELL VOLUME 82.3 fl (80-96); MEAN PLT VOLUME 8.5 fl (7.5-11.1); MONO % 9.2 % (3.8-10.2); NEUT % 85.2 % (42.8-82.8); PLATELET COUNT 199 10^3/uL (134-434); RBC 4.29 M/mm3 (4.00-5.60); RDW 27.5 % (11.9-15.9); WHITE BLOOD COUNT 8.2 K/mm3 (4.0-10.0)
[2022-02-11 08:35] LABS: CALCIUM 8.2 mg/dL (8.5-10.1)
[2022-02-11 08:36] LABS: ALBUMIN 2.1 g/dl (3.4-5.0); BLOOD UREA NITROGEN 76.2 mg/dL (7-18); MAGNESIUM 2.5 mg/dL (1.8-2.4)
[2022-02-11 08:38] LABS: PHOSPHOROUS 4.5 mg/dL (2.5-4.9)
[2022-02-11 08:39] LABS: CREATININE 2.6 mg/dL (0.55-1.3)
[2022-02-11 08:40] LABS: BILIRUBIN,TOTAL 2.7 mg/dL (0.2-1); TOT PROT 4.8 g/dl (6.4-8.2)
[2022-02-11] MEDS: CLOPIDOGREL BISULFATE 75 MG TABLET (FP) PO SCH (09:53)
[2022-02-11] MEDS: MIDODRINE HCL 2.5 MG TABLET PO SCH ×3 (09:53→17:43)
[2022-02-11] MEDS: SACUBITRIL/VALSARTAN 24 MG-26 MG TABLET PO SCH ×2 (09:53→22:04)
[2022-02-11] MEDS ORDERED: FUROSEMIDE INJECTION 100 MG in DEXTROSE 5%-WATER - 40 ML IVPB SCH (11:15)
[2022-02-11] MEDS: ATORVASTATIN CA 80 MG TABLET (FP) PO SCH (22:04)
[2022-02-11] MEDS: RIVAROXABAN 10 MG TABLET PO SCH (22:04)
[2022-02-12 08:49] LABS: ALBUMIN 2.2 g/dl (3.4-5.0); BLOOD UREA NITROGEN 80.7 mg/dL (7-18); CALCIUM 8.2 mg/dL (8.5-10.1)
[2022-02-12 08:52] LABS: CREATININE 2.8 mg/dL (0.55-1.3)
[2022-02-12 08:54] LABS: BILIRUBIN,TOTAL 2.1 mg/dL (0.2-1); TOT PROT 5.2 g/dl (6.4-8.2)
[2022-02-12] MEDS: metoPROLOL SUCCINATE 25 MG TAB.SR.24H (FP) PO SCH (10:45)
[2022-02-12] MEDS ORDERED: LIDOCAINE HCL 2% JELLY 10 ML CARTRIDGE ONE (11:29)
[2022-02-12] MEDS ORDERED: LIDOCAINE HCL 1%, 10 MG/ML (20ML VIAL) ONE (11:53)
[2022-02-12] MEDS ORDERED: LIDOCAINE HCL 1%, 10 MG/ML (20ML VIAL) NR ONE (12:00)
[2022-02-12] MEDS ORDERED: BACITRACIN 15 GM TUBE TOPICAL OINTMENT ONE (12:11)
[2022-02-12] MEDS ORDERED: BACITRACIN 15 GM TUBE TOPICAL OINTMENT TP ONE (12:19)
[2022-02-12] MEDS: MIDODRINE HCL 5 MG TABLET PO SCH ×2 (13:56→18:39)
[2022-02-12] MEDS: SACUBITRIL/VALSARTAN 24 MG-26 MG TABLET PO SCH ×2 (13:57→22:05)
[2022-02-12] MEDS: CLOPIDOGREL BISULFATE 75 MG TABLET (FP) PO SCH (13:58)
[2022-02-12] MEDS: FUROSEMIDE INJECTION 100 MG in DEXTROSE 5%-WATER - 40 ML IVPB SCH (14:41)
[2022-02-12] MEDS: RIVAROXABAN 10 MG TABLET PO SCH (18:39)
[2022-02-12] MEDS: ATORVASTATIN CA 80 MG TABLET (FP) PO SCH (22:05)
[2022-02-13 08:34] LABS: HEMATOCRIT 36.2 % (35.4-49); HEMOGLOBIN 10.6 GM/dL (11.7-16.9); MCH 24.1 pg (25.7-33.7); MCHC 29.3 g/dl (32.0-35.9); MEAN CELL VOLUME 82.5 fl (80-96); MEAN PLT VOLUME 9.3 fl (7.5-11.1); PLATELET COUNT 196 10^3/uL (134-434); RBC 4.38 M/mm3 (4.00-5.60); RDW 27.8 % (11.9-15.9); WHITE BLOOD COUNT 8.5 K/mm3 (4.0-10.0)
[2022-02-13 09:18] LABS: ALBUMIN 2.3 g/dl (3.4-5.0); CALCIUM 8.3 mg/dL (8.5-10.1)
[2022-02-13 09:20] LABS: BLOOD UREA NITROGEN 83.8 mg/dL (7-18)
[2022-02-13 09:23] LABS: TOT PROT 5.6 g/dl (6.4-8.2)
[2022-02-13 09:24] LABS: CREATININE 2.8 mg/dL (0.55-1.3)
[2022-02-13 09:26] LABS: BILIRUBIN,TOTAL 1.9 mg/dL (0.2-1)
[2022-02-13] MEDS: SACUBITRIL/VALSARTAN 24 MG-26 MG TABLET PO SCH ×2 (12:11→21:28)
[2022-02-13] MEDS: metoPROLOL SUCCINATE 25 MG TAB.SR.24H (FP) PO SCH (12:12)
[2022-02-13] MEDS: CLOPIDOGREL BISULFATE 75 MG TABLET (FP) PO SCH ×2 (12:12→14:27)
[2022-02-13] MEDS: MIDODRINE HCL 5 MG TABLET PO SCH ×3 (12:14→18:44)
[2022-02-13] MEDS: FUROSEMIDE INJECTION 100 MG in DEXTROSE 5%-WATER - 40 ML IVPB SCH (13:28)
[2022-02-13] MEDS ORDERED: MIDODRINE HCL 5 MG TABLET PO SCH (18:15)
[2022-02-13] MEDS: ATORVASTATIN CA 80 MG TABLET (FP) PO SCH (21:28)
[2022-02-13] MEDS: RIVAROXABAN 10 MG TABLET PO SCH (23:09)
[2022-02-14 00:06] LABS: ALPHA 2 MACROGLOBULINS,QN 114 mg/dL (110-276); ALT(SGPT)P5P 25 IU/L (0-55); APOLIPOPROTEIN A-1. 59 mg/dL (101-178); CHOLESTEROL TOTAL 77 mg/dL (100-199); FIBROSIS SCORE 0.73 (0.00-0.21); GLUCOSE SERUM 84 mg/dL (65-99); HEIGHT 69 in (.); WEIGHT- 200 LBS (.)
[2022-02-14] MEDS ORDERED: FUROSEMIDE INJECTION 100 MG in DEXTROSE 5%-WATER - 90 ML IVPB SCH (01:45)
[2022-02-14] MEDS ORDERED: FUROSEMIDE INJECTION 100 MG in DEXTROSE 5%-WATER - 40 ML IVPB SCH (02:15)
[2022-02-14] MEDS: metoPROLOL SUCCINATE 25 MG TAB.SR.24H (FP) PO SCH (09:25)
[2022-02-14] MEDS: CLOPIDOGREL BISULFATE 75 MG TABLET (FP) PO SCH (09:25)
[2022-02-14] MEDS: MIDODRINE HCL 5 MG TABLET PO SCH ×3 (09:26→17:31)
[2022-02-14] MEDS: PANTOPRAZOLE SODIUM 40 MG VIAL IVPUSH SCH (09:26)
[2022-02-14] MEDS: SACUBITRIL/VALSARTAN 24 MG-26 MG TABLET PO SCH ×2 (09:28→21:26)
[2022-02-14] MEDS: FUROSEMIDE INJECTION 100 MG in DEXTROSE 5%-WATER - 40 ML IVPB SCH (12:30)
[2022-02-14 12:56] LABS: BASO % 0.1 % (0-2.0); EOS % 2.1 % (0-4.5); HEMATOCRIT 35.5 % (35.4-49); HEMOGLOBIN 10.7 GM/dL (11.7-16.9); LYMPH % 3.5 % (8-40); MCH 24.6 pg (25.7-33.7); MCHC 30.3 g/dl (32.0-35.9); MEAN CELL VOLUME 81.1 fl (80-96); MEAN PLT VOLUME 8.7 fl (7.5-11.1); MONO % 8.4 % (3.8-10.2); NEUT % 85.9 % (42.8-82.8); PLATELET COUNT 174 10^3/uL (134-434); RBC 4.38 M/mm3 (4.00-5.60); RDW 27.6 % (11.9-15.9); WHITE BLOOD COUNT 9.6 K/mm3 (4.0-10.0)
[2022-02-14 13:11] LABS: INR 2.17 (0.83-1.09); PROTHROMBIN TIME (PATIENT) 25.1 SEC (9.7-13.0)
[2022-02-14 13:23] LABS: CALCIUM 8.1 mg/dL (8.5-10.1)
[2022-02-14 13:24] LABS: ALBUMIN 2.1 g/dl (3.4-5.0); BLOOD UREA NITROGEN 75.9 mg/dL (7-18); MAGNESIUM 2.5 mg/dL (1.8-2.4)
[2022-02-14 13:26] LABS: BILIRUBIN,DIRECT 1.7 mg/dL (0.0-0.2); CREATININE 2.5 mg/dL (0.55-1.3); PHOSPHOROUS 3.4 mg/dL (2.5-4.9)
[2022-02-14 13:27] LABS: BILIRUBIN,TOTAL 2.1 mg/dL (0.2-1); TOT PROT 5.6 g/dl (6.4-8.2)
[2022-02-14 13:37] LABS: ANISOCYTOSIS 1+; MACROCYTOSIS 1+; PLATELET ESTIMATE DECREASED; TARGET CELLS 1+
[2022-02-14] MEDS ORDERED: ACETAMINOPHEN 1000 MG/100 ML BAG IVPB STA (17:07)
[2022-02-14] MEDS: RIVAROXABAN 10 MG TABLET PO SCH (17:31)
[2022-02-14] MEDS ORDERED: DOPAMINE 400 MG/D5W - 400,000 MCG/250 ML INFUS.BAG IVPB SCH (19:30)
[2022-02-14] MEDS: ATORVASTATIN CA 80 MG TABLET (FP) PO SCH (21:26)
[2022-02-15] MEDS: SACUBITRIL/VALSARTAN 24 MG-26 MG TABLET PO SCH ×2 (09:58→21:31)
[2022-02-15] MEDS: PANTOPRAZOLE SODIUM 40 MG VIAL IVPUSH SCH (09:58)
[2022-02-15] MEDS: CLOPIDOGREL BISULFATE 75 MG TABLET (FP) PO SCH (09:58)
[2022-02-15] MEDS: MIDODRINE HCL 5 MG TABLET PO SCH ×3 (09:58→17:32)
[2022-02-15] MEDS: METOLAZONE 5 MG TABLET PO SCH (09:58)
[2022-02-15] MEDS: metoPROLOL SUCCINATE 25 MG TAB.SR.24H (FP) PO SCH (09:58)
[2022-02-15] MEDS: FUROSEMIDE INJECTION 100 MG in DEXTROSE 5%-WATER - 40 ML IVPB SCH (12:40)
[2022-02-15] MEDS: ACETAMINOPHEN 1000 MG/100 ML BAG IVPB PRN (16:00)
[2022-02-15] MEDS: RIVAROXABAN 10 MG TABLET PO SCH (17:32)
[2022-02-15 20:26] LABS: BLOOD UREA NITROGEN 78.4 mg/dL (7-18); MAGNESIUM 2.3 mg/dL (1.8-2.4)
[2022-02-15 20:28] LABS: CREATININE 2.6 mg/dL (0.55-1.3); PHOSPHOROUS 3.2 mg/dL (2.5-4.9)
[2022-02-15] MEDS ORDERED: POTASSIUM CHLORIDE TABS 20 MEQ TABLET.ER (FP) PO ONE (20:42)
[2022-02-15] MEDS: ATORVASTATIN CA 80 MG TABLET (FP) PO SCH (21:31)
[2022-02-16] MEDS: FUROSEMIDE INJECTION 100 MG in DEXTROSE 5%-WATER - 40 ML IVPB SCH ×4 (02:06→20:03)
[2022-02-16 07:59] LABS: HEMATOCRIT 32.8 % (35.4-49); HEMOGLOBIN 9.9 GM/dL (11.7-16.9); MCH 24.3 pg (25.7-33.7); MCHC 30.2 g/dl (32.0-35.9); MEAN CELL VOLUME 80.6 fl (80-96); MEAN PLT VOLUME 8.8 fl (7.5-11.1); PLATELET COUNT 185 10^3/uL (134-434); RBC 4.07 M/mm3 (4.00-5.60); RDW 26.8 % (11.9-15.9); WHITE BLOOD COUNT 7.6 K/mm3 (4.0-10.0)
[2022-02-16 08:19] LABS: CALCIUM 7.8 mg/dL (8.5-10.1)
[2022-02-16 08:21] LABS: MAGNESIUM 2.2 mg/dL (1.8-2.4)
[2022-02-16 08:24] LABS: CREATININE 2.5 mg/dL (0.55-1.3); PHOSPHOROUS 3.3 mg/dL (2.5-4.9)
[2022-02-16] MEDS ORDERED: POTASSIUM CHLORIDE TABS 20 MEQ TABLET.ER (FP) PO ONE ×2 (08:27→08:31)
[2022-02-16 08:29] LABS: N-TERMINAL BNP 33354.2 pg/ml (5-125)
[2022-02-16] MEDS: SACUBITRIL/VALSARTAN 24 MG-26 MG TABLET PO SCH ×2 (10:28→21:36)
[2022-02-16] MEDS: metoPROLOL SUCCINATE 25 MG TAB.SR.24H (FP) PO SCH (10:28)
[2022-02-16] MEDS: MIDODRINE HCL 5 MG TABLET PO SCH ×3 (10:28→18:12)
[2022-02-16] MEDS: PANTOPRAZOLE SODIUM 40 MG VIAL IVPUSH SCH (10:29)
[2022-02-16] MEDS: METOLAZONE 5 MG TABLET PO SCH (10:29)
[2022-02-16] MEDS: CLOPIDOGREL BISULFATE 75 MG TABLET (FP) PO SCH (14:25)
[2022-02-16] MEDS: ACETAMINOPHEN 1000 MG/100 ML BAG IVPB PRN (16:44)
[2022-02-16] MEDS: RIVAROXABAN 10 MG TABLET PO SCH (21:15)
[2022-02-16] MEDS: ATORVASTATIN CA 80 MG TABLET (FP) PO SCH (21:36)
[2022-02-17] MEDS: FUROSEMIDE INJECTION 100 MG in DEXTROSE 5%-WATER - 40 ML IVPB SCH ×2 (04:57→21:31)
[2022-02-17 08:38] LABS: HEMOGLOBIN 10.4 GM/dL (11.7-16.9); MCH 23.9 pg (25.7-33.7); MCHC 29.7 g/dl (32.0-35.9); MEAN CELL VOLUME 80.5 fl (80-96); MEAN PLT VOLUME 9.1 fl (7.5-11.1); PLATELET COUNT 193 10^3/uL (134-434); RBC 4.35 M/mm3 (4.00-5.60); RDW 26.1 % (11.9-15.9); WHITE BLOOD COUNT 8.3 K/mm3 (4.0-10.0)
[2022-02-17 09:09] LABS: CALCIUM 8.3 mg/dL (8.5-10.1)
[2022-02-17 09:10] LABS: ALBUMIN 2.1 g/dl (3.4-5.0); BLOOD UREA NITROGEN 79.2 mg/dL (7-18); MAGNESIUM 2.3 mg/dL (1.8-2.4)
[2022-02-17 09:13] LABS: CREATININE 2.5 mg/dL (0.55-1.3); PHOSPHOROUS 3.2 mg/dL (2.5-4.9)
[2022-02-17 09:14] LABS: BILIRUBIN,TOTAL 1.8 mg/dL (0.2-1); TOT PROT 5.6 g/dl (6.4-8.2)
[2022-02-17] MEDS ORDERED: POTASSIUM CHLORIDE TABS 20 MEQ TABLET.ER (FP) PO ONE (10:24)
[2022-02-17] MEDS: PANTOPRAZOLE SODIUM 40 MG VIAL IVPUSH SCH (10:33)
[2022-02-17] MEDS: CLOPIDOGREL BISULFATE 75 MG TABLET (FP) PO SCH (10:33)
[2022-02-17] MEDS: SACUBITRIL/VALSARTAN 24 MG-26 MG TABLET PO SCH ×2 (10:33→21:30)
[2022-02-17] MEDS: MIDODRINE HCL 5 MG TABLET PO SCH ×3 (10:33→18:51)
[2022-02-17] MEDS: metoPROLOL SUCCINATE 25 MG TAB.SR.24H (FP) PO SCH (10:34)
[2022-02-17] MEDS: METOLAZONE 5 MG TABLET PO SCH (10:34)
[2022-02-17] MEDS: KCL 10 MEQ IVPB 10 MEQ/100 ML INFUS.BAG IVPB SCH ×3 (12:51→14:54)
[2022-02-17] MEDS: ALBUMIN HUMAN 25% 12.5 GM/50 ML VIAL IV SCH ×2 (17:24→20:05)
[2022-02-17] MEDS: RIVAROXABAN 10 MG TABLET PO SCH (18:52)
[2022-02-17] MEDS: ATORVASTATIN CA 80 MG TABLET (FP) PO SCH (21:30)
[2022-02-18 09:24] LABS: ALBUMIN 2.3 g/dl (3.4-5.0); BLOOD UREA NITROGEN 74.7 mg/dL (7-18); CALCIUM 8.4 mg/dL (8.5-10.1)
[2022-02-18 09:26] LABS: CREATININE 2.4 mg/dL (0.55-1.3)
[2022-02-18 09:29] LABS: BILIRUBIN,TOTAL 2.2 mg/dL (0.2-1); TOT PROT 5.8 g/dl (6.4-8.2)
[2022-02-18] MEDS: metoPROLOL SUCCINATE 25 MG TAB.SR.24H (FP) PO SCH (10:09)
[2022-02-18] MEDS: METOLAZONE 5 MG TABLET PO SCH (10:09)
[2022-02-18] MEDS: SACUBITRIL/VALSARTAN 24 MG-26 MG TABLET PO SCH ×2 (10:09→21:24)
[2022-02-18] MEDS: MIDODRINE HCL 5 MG TABLET PO SCH ×3 (10:09→17:38)
[2022-02-18] MEDS: PANTOPRAZOLE SODIUM 40 MG VIAL IVPUSH SCH (10:09)
[2022-02-18] MEDS: CLOPIDOGREL BISULFATE 75 MG TABLET (FP) PO SCH (10:09)
[2022-02-18] MEDS ORDERED: POTASSIUM CHLORIDE TABS 20 MEQ TABLET.ER (FP) PO ONE ×2 (13:00→15:45)
[2022-02-18] MEDS: FUROSEMIDE INJECTION 100 MG in DEXTROSE 5%-WATER - 40 ML IVPB SCH ×2 (14:21→21:25)
[2022-02-18] MEDS: ALBUMIN HUMAN 25% 12.5 GM/50 ML VIAL IV SCH ×2 (15:42→21:20)
[2022-02-18] MEDS: RIVAROXABAN 10 MG TABLET PO SCH (17:39)
[2022-02-18] MEDS: ATORVASTATIN CA 80 MG TABLET (FP) PO SCH (21:24)
[2022-02-19] MEDS: CLOPIDOGREL BISULFATE 75 MG TABLET (FP) PO SCH (09:27)
[2022-02-19] MEDS: SACUBITRIL/VALSARTAN 24 MG-26 MG TABLET PO SCH ×2 (09:27→21:13)
[2022-02-19] MEDS: PANTOPRAZOLE SODIUM 40 MG VIAL IVPUSH SCH (09:27)
[2022-02-19] MEDS: MIDODRINE HCL 5 MG TABLET PO SCH ×3 (09:27→18:34)
[2022-02-19] MEDS: METOLAZONE 5 MG TABLET PO SCH (09:27)
[2022-02-19] MEDS: metoPROLOL SUCCINATE 25 MG TAB.SR.24H (FP) PO SCH (09:27)
[2022-02-19] MEDS: ACETAMINOPHEN 325 MG TABLET (FP) PO PRN (16:11)
[2022-02-19] MEDS: RIVAROXABAN 10 MG TABLET PO SCH (18:34)
[2022-02-19] MEDS: ASCORBIC ACID 250 MG TABLET (FP) PO SCH (21:13)
[2022-02-19] MEDS: ZINC SULFATE 220 MG CAPSULE (FP) PO SCH (21:13)
[2022-02-19] MEDS: ATORVASTATIN CA 80 MG TABLET (FP) PO SCH (21:13)
[2022-02-19] MEDS: MULTIVITAMINS (DAILY MVI) TABLET (FP) PO SCH (21:13)
[2022-02-20 08:11] LABS: ALBUMIN 2.3 g/dl (3.4-5.0); BLOOD UREA NITROGEN 79.8 mg/dL (7-18); CALCIUM 8.1 mg/dL (8.5-10.1)
[2022-02-20 08:13] LABS: CREATININE 2.5 mg/dL (0.55-1.3); TOT PROT 5.6 g/dl (6.4-8.2)
[2022-02-20 08:14] LABS: BILIRUBIN,TOTAL 1.8 mg/dL (0.2-1)
[2022-02-20] MEDS: SACUBITRIL/VALSARTAN 24 MG-26 MG TABLET PO SCH ×2 (09:08→21:43)
[2022-02-20] MEDS: metoPROLOL SUCCINATE 25 MG TAB.SR.24H (FP) PO SCH (09:09)
[2022-02-20] MEDS: ZINC SULFATE 220 MG CAPSULE (FP) PO SCH (09:09)
[2022-02-20] MEDS: CLOPIDOGREL BISULFATE 75 MG TABLET (FP) PO SCH (09:10)
[2022-02-20] MEDS: MIDODRINE HCL 5 MG TABLET PO SCH ×3 (09:10→17:04)
[2022-02-20] MEDS: MULTIVITAMINS (DAILY MVI) TABLET (FP) PO SCH (09:10)
[2022-02-20] MEDS: ASCORBIC ACID 250 MG TABLET (FP) PO SCH (09:10)
[2022-02-20] MEDS: AMINO ACIDS/PROTEIN HYDROLYS 30 ML LIQUID.PKT PO SCH (09:10)
[2022-02-20] MEDS: PANTOPRAZOLE SODIUM 40 MG VIAL IVPUSH SCH (09:11)
[2022-02-20] MEDS: FUROSEMIDE INJECTION 100 MG in DEXTROSE 5%-WATER - 40 ML IVPB SCH ×2 (09:21→17:05)
[2022-02-20] MEDS: METOLAZONE 5 MG TABLET PO SCH (09:21)
[2022-02-20] MEDS ORDERED: POTASSIUM CHLORIDE TABS 20 MEQ TABLET.ER (FP) PO ONE ×2 (10:12→22:00)
[2022-02-20] MEDS ORDERED: POTASSIUM CHLORIDE ORAL LIQUID 20 MEQ/15 ML PO ONE (13:35)
[2022-02-20] MEDS: ACETAMINOPHEN 325 MG TABLET (FP) PO PRN (15:00)
[2022-02-20] MEDS: RIVAROXABAN 10 MG TABLET PO SCH (17:05)
[2022-02-20] MEDS: ATORVASTATIN CA 80 MG TABLET (FP) PO SCH (21:43)
[2022-02-21] MEDS: FUROSEMIDE INJECTION 100 MG in DEXTROSE 5%-WATER - 40 ML IVPB SCH ×3 (04:56→18:00)
[2022-02-21] MEDS: METOLAZONE 5 MG TABLET PO SCH (09:23)
[2022-02-21] MEDS: MULTIVITAMINS (DAILY MVI) TABLET (FP) PO SCH (09:23)
[2022-02-21] MEDS: ZINC SULFATE 220 MG CAPSULE (FP) PO SCH (09:23)
[2022-02-21] MEDS: CLOPIDOGREL BISULFATE 75 MG TABLET (FP) PO SCH (09:23)
[2022-02-21] MEDS: ASCORBIC ACID 250 MG TABLET (FP) PO SCH (09:23)
[2022-02-21] MEDS: MIDODRINE HCL 5 MG TABLET PO SCH ×3 (09:23→17:08)
[2022-02-21] MEDS: SACUBITRIL/VALSARTAN 24 MG-26 MG TABLET PO SCH ×3 (09:23→22:05)
[2022-02-21] MEDS: AMINO ACIDS/PROTEIN HYDROLYS 30 ML LIQUID.PKT PO SCH (09:24)
[2022-02-21] MEDS: PANTOPRAZOLE SODIUM 40 MG VIAL IVPUSH SCH (09:24)
[2022-02-21] MEDS: metoPROLOL SUCCINATE 25 MG TAB.SR.24H (FP) PO SCH ×2 (10:58→13:01)
[2022-02-21] MEDS: ACETAMINOPHEN 325 MG TABLET (FP) PO PRN (13:15)
[2022-02-21 16:13] LABS: BASO % 0.8 % (0-2.0); EOS % 3.2 % (0-4.5); HEMATOCRIT 33.8 % (35.4-49); HEMOGLOBIN 10.1 GM/dL (11.7-16.9); LYMPH % 3.9 % (8-40); MCH 23.7 pg (25.7-33.7); MCHC 29.8 g/dl (32.0-35.9); MEAN CELL VOLUME 79.4 fl (80-96); MEAN PLT VOLUME 9.3 fl (7.5-11.1); MONO % 4.9 % (3.8-10.2); NEUT % 87.2 % (42.8-82.8); PLATELET COUNT 220 10^3/uL (134-434); RBC 4.26 M/mm3 (4.00-5.60); RDW 25.2 % (11.9-15.9); WHITE BLOOD COUNT 12.7 K/mm3 (4.0-10.0)
[2022-02-21 16:29] LABS: CHLORIDE 96 mmol/L (98-107); SODIUM 148 mmol/L (136-145)
[2022-02-21 16:33] LABS: ALBUMIN 2.2 g/dl (3.4-5.0); CALCIUM 8.2 mg/dL (8.5-10.1); GLUCOSE,RANDOM 118 mg/dL (74-106)
[2022-02-21 16:34] LABS: BLOOD UREA NITROGEN 82.8 mg/dL (7-18)
[2022-02-21 16:36] LABS: CREATININE 2.7 mg/dL (0.55-1.3); SGOT/AST 31 U/L (15-37); SGPT/ALT 19 U/L (13-61)
[2022-02-21 16:38] LABS: TOT PROT 5.7 g/dl (6.4-8.2)
[2022-02-21 16:39] LABS: ALK PHOS 91 U/L (45-117)
[2022-02-21 16:40] LABS: ANION GAP 6 MMOL/L (8-16); CO2 > 45 mmol/L (21-32)
[2022-02-21] MEDS: RIVAROXABAN 10 MG TABLET PO SCH (17:08)
[2022-02-21] MEDS ORDERED: POTASSIUM CHLORIDE TABS 20 MEQ TABLET.ER (FP) PO ONE (17:15)
[2022-02-21] MEDS: ATORVASTATIN CA 80 MG TABLET (FP) PO SCH ×2 (20:43→22:05)
[2022-02-22 08:19] LABS: BLOOD UREA NITROGEN 89.7 mg/dL (7-18); CALCIUM 7.8 mg/dL (8.5-10.1)
[2022-02-22 08:20] LABS: MAGNESIUM 2.2 mg/dL (1.8-2.4)
[2022-02-22 08:22] LABS: CREATININE 2.6 mg/dL (0.55-1.3)
[2022-02-22 08:24] LABS: BILIRUBIN,TOTAL 1.9 mg/dL (0.2-1); TOT PROT 5.2 g/dl (6.4-8.2)
[2022-02-22] MEDS: PANTOPRAZOLE SODIUM 40 MG VIAL IVPUSH SCH (10:10)
[2022-02-22] MEDS: ASCORBIC ACID 250 MG TABLET (FP) PO SCH (10:10)
[2022-02-22] MEDS: MULTIVITAMINS (DAILY MVI) TABLET (FP) PO SCH (10:10)
[2022-02-22] MEDS: CLOPIDOGREL BISULFATE 75 MG TABLET (FP) PO SCH (10:11)
[2022-02-22] MEDS: MIDODRINE HCL 5 MG TABLET PO SCH ×2 (10:11→17:30)
[2022-02-22] MEDS: ZINC SULFATE 220 MG CAPSULE (FP) PO SCH (10:11)
[2022-02-22] MEDS: AMINO ACIDS/PROTEIN HYDROLYS 30 ML LIQUID.PKT PO SCH (10:11)
[2022-02-22] MEDS: SACUBITRIL/VALSARTAN 24 MG-26 MG TABLET PO SCH ×2 (10:12→21:50)
[2022-02-22] MEDS: metoPROLOL SUCCINATE 25 MG TAB.SR.24H (FP) PO SCH (10:20)
[2022-02-22] MEDS: METOLAZONE 5 MG TABLET PO SCH (10:21)
[2022-02-22] MEDS ORDERED: POTASSIUM CHLORIDE TABS 20 MEQ TABLET.ER (FP) PO ONE (11:42)
[2022-02-22] MEDS: RIVAROXABAN 10 MG TABLET PO SCH (17:30)
[2022-02-22] MEDS: ACETAMINOPHEN 325 MG TABLET (FP) PO PRN (17:30)
[2022-02-22] MEDS: FUROSEMIDE INJECTION 100 MG in DEXTROSE 5%-WATER - 40 ML IVPB SCH (21:49)
[2022-02-22] MEDS: ATORVASTATIN CA 80 MG TABLET (FP) PO SCH (21:50)
[2022-02-23] MEDS: ACETAMINOPHEN 325 MG TABLET (FP) PO PRN ×3 (06:34→14:15)
[2022-02-23 08:10] LABS: EOS % 4.9 % (0-4.5); HEMATOCRIT 34.1 % (35.4-49); HEMOGLOBIN 10.3 GM/dL (11.7-16.9); LYMPH % 4.2 % (8-40); MCH 24.2 pg (25.7-33.7); MCHC 30.1 g/dl (32.0-35.9); MEAN CELL VOLUME 80.4 fl (80-96); MEAN PLT VOLUME 9.8 fl (7.5-11.1); MONO % 6.2 % (3.8-10.2); NEUT % 83.7 % (42.8-82.8); PLATELET COUNT 209 10^3/uL (134-434); RBC 4.24 M/mm3 (4.00-5.60); RDW 24.7 % (11.9-15.9); WHITE BLOOD COUNT 14.3 K/mm3 (4.0-10.0)
[2022-02-23 08:40] LABS: CHLORIDE 97 mmol/L (98-107); SODIUM 148 mmol/L (136-145)
[2022-02-23 08:42] LABS: CALCIUM 8.2 mg/dL (8.5-10.1)
[2022-02-23 08:43] LABS: ALBUMIN 1.9 g/dl (3.4-5.0); BLOOD UREA NITROGEN 92.6 mg/dL (7-18); GLUCOSE,RANDOM 92 mg/dL (74-106); MAGNESIUM 2.2 mg/dL (1.8-2.4)
[2022-02-23 08:46] LABS: CREATININE 2.8 mg/dL (0.55-1.3); SGOT/AST 39 U/L (15-37); SGPT/ALT 21 U/L (13-61)
[2022-02-23 08:47] LABS: TOT PROT 5.2 g/dl (6.4-8.2)
[2022-02-23 08:48] LABS: BILIRUBIN,TOTAL 1.9 mg/dL (0.2-1)
[2022-02-23 08:49] LABS: ALK PHOS 86 U/L (45-117)
[2022-02-23] MEDS ORDERED: POTASSIUM CHLORIDE TABS 20 MEQ TABLET.ER (FP) PO ONE (08:54)
[2022-02-23 08:58] LABS: ANION GAP 6 MMOL/L (8-16); CO2 > 45 mmol/L (21-32)
[2022-02-23] MEDS: AMINO ACIDS/PROTEIN HYDROLYS 30 ML LIQUID.PKT PO SCH (09:57)
[2022-02-23] MEDS: MULTIVITAMINS (DAILY MVI) TABLET (FP) PO SCH (09:57)
[2022-02-23] MEDS: PANTOPRAZOLE SODIUM 40 MG VIAL IVPUSH SCH (09:57)
[2022-02-23] MEDS: metoPROLOL SUCCINATE 25 MG TAB.SR.24H (FP) PO SCH (09:57)
[2022-02-23] MEDS: ZINC SULFATE 220 MG CAPSULE (FP) PO SCH (09:57)
[2022-02-23] MEDS: MIDODRINE HCL 5 MG TABLET PO SCH ×2 (09:57→18:16)
[2022-02-23] MEDS: CLOPIDOGREL BISULFATE 75 MG TABLET (FP) PO SCH (09:57)
[2022-02-23] MEDS: ASCORBIC ACID 250 MG TABLET (FP) PO SCH (09:57)
[2022-02-23] MEDS: METOLAZONE 5 MG TABLET PO SCH (09:58)
[2022-02-23] MEDS: KCL 10 MEQ IVPB 10 MEQ/100 ML INFUS.BAG IVPB SCH ×2 (09:59→12:48)
[2022-02-23] MEDS: SACUBITRIL/VALSARTAN 24 MG-26 MG TABLET PO SCH ×2 (12:47→21:13)
[2022-02-23 14:45] VITALS: BMI 30.7
[2022-02-23] MEDS: RIVAROXABAN 10 MG TABLET PO SCH (18:16)
[2022-02-23] MEDS: FUROSEMIDE INJECTION 100 MG in DEXTROSE 5%-WATER - 40 ML IVPB SCH (21:12)
[2022-02-23] MEDS: ATORVASTATIN CA 80 MG TABLET (FP) PO SCH (21:12)
[2022-02-24] MEDS: ZINC SULFATE 220 MG CAPSULE (FP) PO SCH (09:28)
[2022-02-24] MEDS: metoPROLOL SUCCINATE 25 MG TAB.SR.24H (FP) PO SCH (09:28)
[2022-02-24] MEDS: MIDODRINE HCL 5 MG TABLET PO SCH (09:28)
[2022-02-24] MEDS: MULTIVITAMINS (DAILY MVI) TABLET (FP) PO SCH (09:28)
[2022-02-24] MEDS: SACUBITRIL/VALSARTAN 24 MG-26 MG TABLET PO SCH (09:28)
[2022-02-24] MEDS: ASCORBIC ACID 250 MG TABLET (FP) PO SCH (09:28)
[2022-02-24] MEDS: PANTOPRAZOLE SODIUM 40 MG VIAL IVPUSH SCH (09:29)
[2022-02-24] MEDS: CLOPIDOGREL BISULFATE 75 MG TABLET (FP) PO SCH (09:29)
[2022-02-24] MEDS: AMINO ACIDS/PROTEIN HYDROLYS 30 ML LIQUID.PKT PO SCH (09:29)
[2022-02-24] MEDS: METOLAZONE 5 MG TABLET PO SCH (09:30)
[2022-02-24] MEDS ORDERED: MIDODRINE HCL 5 MG TABLET PO SCH (10:45)
[2022-02-24] MEDS ORDERED: POTASSIUM CHLORIDE TABS 20 MEQ TABLET.ER (FP) PO ONE (10:45)
[2022-02-24] MEDS: ACETAMINOPHEN 325 MG TABLET (FP) PO PRN (13:31)
[2022-02-24] MEDS ORDERED: FUROSEMIDE 100 MG/10 ML INJECTABLE VIAL IVPB SCH (14:00)
[2022-02-24] MEDS ORDERED: SILVER SULFADIAZINE 1% TOP CREAM 50 GM JAR TP SCH (14:00)
[2022-02-24] MEDS ORDERED: BACITRACIN 15 GM TUBE TOPICAL OINTMENT TP SCH (14:00)
[2022-02-24] MEDS: PIPERACILLIN/TAZOB 2.25 GM 2.25 GM in DEXTROSE 5%-WATER - 50 ML IVPB SCH ×2 (16:17→18:43)
[2022-02-24] MEDS: RIVAROXABAN 10 MG TABLET PO SCH (17:26)
[2022-02-24 18:54] VITALS: BP 101/64; PULSE 101; RESP 20; TEMP 99.4
== END 2022-02-24 20:00 | disposition short-term general hospital (02) | DRG 952 ==
LOC: JER 12:42 → JERBED 17:26 → J4W 02-10 18:15 → JICU 02-13 13:03 → J4W 02-16 17:19
PROVIDERS: ADMIT Internal Medicine; ATTEND Internal Medicine
PROC: 0VQS0ZZ Repair Penis, Open Approach (ICD-10-PCS; principal; 2022-02-12 14:30)
DX: I13.0 Hypertensive heart and chronic kidney disease with heart failure and stage 1 through stage 4 chronic kidney disease, or unspecified chronic kidney disease (principal); I50.23 Acute on chronic systolic (congestive) heart failure; N17.9 Acute kidney failure, unspecified; I47.20 Ventricular tachycardia, unspecified; E87.0 Hyperosmolality and hypernatremia; R18.8 Other ascites; I42.0 Dilated cardiomyopathy; K72.90 Hepatic failure, unspecified without coma; K76.0 Fatty (change of) liver, not elsewhere classified; D64.9 Anemia, unspecified; K76.1 Chronic passive congestion of liver; N18.9 Chronic kidney disease, unspecified; I25.5 Ischemic cardiomyopathy; E78.00 Pure hypercholesterolemia, unspecified; I25.119 Atherosclerotic heart disease of native coronary artery with unspecified angina pectoris; K21.9 Gastro-esophageal reflux disease without esophagitis; E78.5 Hyperlipidemia, unspecified; I48.0 Paroxysmal atrial fibrillation; D72.829 Elevated white blood cell count, unspecified; G47.33 Obstructive sleep apnea (adult) (pediatric); E87.6 Hypokalemia; N47.1 Phimosis; N48.1 Balanitis; Z95.5 Presence of coronary angioplasty implant and graft; R31.29 Other microscopic hematuria; E87.70 Fluid overload, unspecified; R33.9 Retention of urine, unspecified
CPT/HCPCS: 36415; 70450-TC; 71045-TC-FY; 71046-TC-FY; 72125-TC; 76705-TC; 80048; 80053; 82172; 82247; 82248; 82465; 82803; 82947; 82977; 83010; 83735; 83880; 83883; 84100; 84450; 84460; 84478; 84484; 85025; 85027; 85610; 85730; 86705; 86707; 86708; 87040; 87086; 87186; 87340; 87350; 87517; 87522; 88108; 93005; 93010; 93971; 93971-TC; 94010; 99285-25; C9803-CS; P9047; U0003; U0005